=== PATIENT | female | born 1990 | race American Indian/Alaskan Native ===

== ENCOUNTER 2019-10-18 13:52 | Emergency (ER) | payer OTHER, MEDICAID ==
[2019-10-18 16:18] VITALS: BP 119/76
--- NOTE | 2019-10-18 17:44 | Emergency Department Report ---
- General Chief complaint: Skin/Abscess/Foreign Body Stated complaint: PAIN/LUMP ON STOMACH Time Seen by Provider: 10/18/19 17:11 Source: patient Mode of arrival: Ambulatory Limitations: No Limitations - History of Present Illness Initial comments: Visit pleasant 29-year-old female presents the emergency department with a chief complaint of a painful lump on her stomach and has been present since July. Patient reports that it is tender to touch she notices it more when she stands up. She states the pain is now 10 in severity. She denies any known past medical history, current medications and allergies to medications. She does report she had an umbilical hernia as a baby that was repaired. - Related Data Previous Rx's Medication Instructions Recorded Last Taken Type Ciprofloxacin HCl [Cipro] 500 mg PO Q12H #14 tab 07/24/13 Unknown Rx Fluconazole [Diflucan] 150 mg PO ONCE #1 tablet 07/24/13 Unknown Rx Phenazopyridine [Pyridium] 100 mg PO Q8H #9 tablet 07/24/13 Unknown Rx Naproxen 500 mg PO BID #20 tablet 10/18/19 Unknown Rx Allergies Allergy/AdvReac Type Severity Reaction Status Date / Time Penicillins Allergy Unknown Verified 07/23/13 23:46 Abscess Boil HPI - HPI Chief Complaint: Skin/Abscess/Foreign Body Stated Complaint: PAIN/LUMP ON STOMACH Time Seen by Provider: 10/18/19 17:11 Home Medications: Previous Rx's Medication Instructions Recorded Last Taken Type Ciprofloxacin HCl [Cipro] 500 mg PO Q12H #14 tab 07/24/13 Unknown Rx Fluconazole [Diflucan] 150 mg PO ONCE #1 tablet 07/24/13 Unknown Rx Phenazopyridine [Pyridium] 100 mg PO Q8H #9 tablet 07/24/13 Unknown Rx Naproxen 500 mg PO BID #20 tablet 10/18/19 Unknown Rx Allergies/Adverse Reactions: Allergies Allergy/AdvReac Type Severity Reaction Status Date / Time Penicillins Allergy Unknown Verified 07/23/13 23:46 ED Review of Systems ROS: Stated complaint: PAIN/LUMP ON STOMACH Other details as noted in HPI Comment: All other systems reviewed and negative Constitutional: denies: chills, fever Eyes: denies: eye pain, eye discharge, vision change ENT: denies: ear pain, throat pain Respiratory: denies: cough, shortness of breath, wheezing Cardiovascular: denies: chest pain, palpitations Endocrine: no symptoms reported Gastrointestinal: denies: abdominal pain, nausea, diarrhea Genitourinary: denies: urgency, dysuria, discharge Musculoskeletal: denies: back pain, joint swelling, arthralgia Skin: denies: rash, lesions Neurological: denies: headache, weakness, paresthesias Psychiatric: denies: anxiety, depression Hematological/Lymphatic: denies: easy bleeding, easy bruising ED Past Medical Hx - Past Medical History Previous Medical History?: No - Surgical History Past Surgical History?: No - Social History Smoking Status: Never Smoker Substance Use Type: None - Medications Home Medications: Home Medications Medication Instructions Recorded Confirmed Last Taken Type Ciprofloxacin HCl [Cipro] 500 mg PO Q12H #14 tab 07/24/13 Unknown Rx Fluconazole [Diflucan] 150 mg PO ONCE #1 tablet 07/24/13 Unknown Rx Phenazopyridine [Pyridium] 100 mg PO Q8H #9 tablet 07/24/13 Unknown Rx Naproxen 500 mg PO BID #20 tablet 10/18/19 Unknown Rx ED Physical Exam - General Limitations: No Limitations General appearance: alert, in no apparent distress - Head Head exam: Present: atraumatic, normocephalic - Eye Eye exam: Present: normal appearance, PERRL, EOMI Pupils: Present: normal accommodation - ENT ENT exam: Present: normal exam, normal orophraynx, mucous membranes moist - Neck Neck exam: Present: normal inspection, full ROM. Absent: tenderness, meningismus - Respiratory Respiratory exam: Present: normal lung sounds bilaterally. Absent: respiratory distress, wheezes, rales, rhonchi, stridor - Cardiovascular Cardiovascular Exam: Present: regular rate, normal rhythm, normal heart sounds. Absent: systolic murmur, diastolic murmur, rubs, gallop - GI/Abdominal GI/Abdominal exam: Present: soft, normal bowel sounds, other (there is a 1 cm firm mobile tender nodule to the left upper outer portion of the periumbilical area. This is approximately 2 o'clock is mild tenderness to palpation. No erythema, induration or crepitus.). Absent: distended, guarding, rebound, rigid - Extremities Exam Extremities exam: Present: normal inspection, full ROM. Absent: tenderness, calf tenderness - Back Exam Back exam: Present: normal inspection - Neurological Exam Neurological exam: Present: alert, oriented X3 - Psychiatric Psychiatric exam: Present: normal affect, normal mood - Skin Skin exam: Present: warm, dry, intact, normal color. Absent: rash ED Course Vital Signs 10/18/19 16:16 Temperature 99.4 F Pulse Rate 77 Respiratory 18 Rate Blood Pressure 119/76 O2 Sat by Pulse 100 Oximetry ED Medical Decision Making - Medical Decision Making Patient presented to the ER with 2-3 months of a painful bump on her stomach. Does not appear to be an abscess with no fluctuance, erythema or induration. There is possibility this could be lymphadenitis harnesses unusual place for a lymph node. I suspect this is likely a lipoma. Did recommend outpatient follow-up with surgery and return emergently changing worsening symptoms. She had a history of a umbilical hernia as a child that was repaired however does not appear to be a hernia she is not having any worsening protrusion when standing. Since very small us a centimeter and small enough for no bowel could fit into it lower my concern for incarceration or strangulation however did recommend she return [facility] for if she develops any nausea, vomiting, severe pain, or any other changing worsening symptoms. She verbalizes understanding of these instructions and will follow-up - Differential Diagnosis lipoma, lymphadenopathy, hernia Critical care attestation.: If time is entered above; I have spent that time in minutes in the direct care of this critically ill patient, excluding procedure time. ED Disposition Clinical Impression: Lipoma Qualifiers: Lipoma location: unspecified Qualified Code(s): D17.9 - Benign lipomatous neoplasm, unspecified Disposition: DC-01 TO HOME OR SELFCARE Is pt being admited?: No Condition: Stable Instructions: Lipoma (ED) Prescriptions: Naproxen 500 mg PO BID #20 tablet Referrals: PRINCESS GERARDO DO [Staff Physician] - 3-5 Days Time of Disposition: 17:44
== END 2019-10-18 17:57 | disposition home or self-care (01) ==
LOC: ED 13:52
DX: D17.9 Benign lipomatous neoplasm, unspecified (principal); Z79.899 Other long term (current) drug therapy; Z88.0 Allergy status to penicillin